=== PATIENT | male | born 1955 ===

== ENCOUNTER → 2018-04-20 19:36 | Outpatient (REF) | payer BC, SELFPAY ==
[2018-04-20 20:07] LABS: Cholesterol 208 mg/dL (140-199); HDL Cholesterol 40 mg/dL (40-60); LDL Cholesterol Calculated 138 mg/dL (<100); Triglycerides 151 mg/dL (35-150)
== END ==
LOC: LAB 19:36
PROVIDERS: Visit Provider Family Medicine
DX: E78.5 Hyperlipidemia, unspecified (principal)
CPT/HCPCS: 36415; 80061

== ENCOUNTER → 2018-12-07 19:29 | Outpatient (ROUT) | payer BC, SELFPAY ==
[2018-12-07 20:02] LABS: Alanine Aminotransferase 41 IU/L (21-72); Aspartate Aminotransferase 42 IU/L (17-59); Cholesterol 172 mg/dL (140-199); Creatine Kinase 175 U/L (55-170); HDL Cholesterol 46 mg/dL (40-60); LDL Cholesterol Calculated 71 mg/dL (<100); Triglycerides 273 mg/dL (35-150)
== END ==
PROVIDERS: Visit Provider Family Medicine
DX: E78.5 Hyperlipidemia, unspecified (principal)
CPT/HCPCS: 36415; 80061; 82550; 84450; 84460